=== PATIENT | female | born 1990 | race Two or more races ===

== ENCOUNTER 2020-10-26 08:52 | Emergency (ER) | payer MEDICAID ==
[~2020-10-26] VITALS: Ht 165.1 cm; Wt 68.2 kg
[2020-10-26 09:46] LABS: BASOPHILS % (AUTO) 0.2 % (0-1); EOSINOPHILS % (AUTO) 0 % (0-6); HEMATOCRIT 43.2 % (35.0-45.0); HEMOGLOBIN 14.5 g/dl (12.0-16.0); LYMPHOCYTES # (AUTO) 2.1 X10'3 (1.1-4.8); LYMPHOCYTES % (AUTO) 38.2 % (21-51); MEAN CORPUSCULAR HEMOGLOBIN 30.4 PG (27.0-31.0); MEAN CORPUSCULAR HGB CONC 33.6 g/dL (33.0-36.5); MEAN CORPUSCULAR VOLUME 90.6 FL (78-98); MEAN PLATELET VOLUME 7.7 FL (7.4-10.4); MONOCYTES # (AUTO) 0.5 X10'3 (0-0.9); MONOCYTES % (AUTO) 8.3 % (2-12); NEUTROPHILS % (AUTO) 53.3 % (42-75); PLATELET COUNT 227 X10'3 (140-440); RED BLOOD COUNT 4.77 X10'6 (4.20-5.60); RED CELL DISTRIBUTION WIDTH 12.6 % (11.5-14.5); WHITE BLOOD COUNT 5.6 X10'3 (4.5-11.0)
[2020-10-26] MEDS ORDERED: DEXA4TAB67 PO (10:21)
[2020-10-26] MEDS ORDERED: dexamethasone 4mg tablet PO ONE (10:25)
[2020-10-26 10:27] LABS: ALANINE AMINOTRANSFERASE 22 U/L (12-78); ALBUMIN 3.6 G/DL (3.4-5.0); ALBUMIN/GLOBULIN RATIO 0.7 (1.1-1.5); ALKALINE PHOSPHATASE 92 IU/L (46-116); ANION GAP 12 (8-16); ASPARTATE AMINO TRANSFERASE 22 U/L (10-37); BILIRUBIN,TOTAL 0.2 MG/DL (0.1-1.0); BLOOD UREA NITROGEN 17 MG/DL (7-18); BUN/CREATININE RATIO 16.3 (6.6-38.0); C-REACTIVE PROTEIN 5.71 MG/DL (0.0-0.5); CALCIUM 8.4 MG/DL (8.5-10.1); CHLORIDE 103 MMOL/L (99-107); CREATININE 1.04 MG/DL (0.40-0.90); FERRITIN 848 NG/ML (8-252); GLUCOSE 93 MG/DL (70-104); LACTATE DEHYDROGENASE 240 U/L (81-234); SODIUM 141 MMOL/L (135-145); TOTAL CARBON DIOXIDE 25.7 MMOL/L (24-32); TOTAL PROTEIN 8.5 G/DL (6.4-8.2); eGFR 63 ML/MIN
[2020-10-26 10:34] LABS: POTASSIUM 2.9 MMOL/L (3.5-5.1)
[2020-10-26] MEDS ORDERED: potassium Cl 20 mEq SR tablet PO STA ×2 (10:39→12:48)
[2020-10-26] MEDS ORDERED: magnesium oxide 400mg tablet PO ONE (10:40)
[2020-10-26 10:48] LABS: D-DIMER 1.19 MG/L FEU (0-0.50); PARTIAL THROMBOPLASTIN TIME 31 SECONDS (22-32)
[2020-10-26] MEDS ORDERED: iohexol 350MG/ML 100ml bottle IV ONE (12:00)
[2020-10-26 13:20] VITALS: BP 136/85
[2020-10-26] MEDS ORDERED: POTA20TA19 PO (13:29)
--- NOTE | 2020-10-27 10:20 | NUR ---
PT'S MOTHER CALLED REGARDING YESTERDAYS VISIT. PT HAS MISPLACED HER DC PAPERS TO INCLUDE HER PERSCRIPTION. DR STRONG APPROVED RX BE CALLED INTO PT'S PHARMACH[facility] [place]: *DEXAMETHASONE 4MG TAB, 1 TAB PO Q12H FOR 5 DAYS #10 *POTASSIUM CLORIDE (K-DUR) 20MCG TAB, 1 TAB PO BID FOR 5 DAYS #10.
== END 2020-10-26 13:50 | disposition home or self-care (01) ==
LOC: ER 08:53
DX: U07.1 COVID-19 (principal); J12.82 Pneumonia due to coronavirus disease 2019; R05 Cough; R11.0 Nausea; J02.9 Acute pharyngitis, unspecified; E87.6 Hypokalemia; Z90.710 Acquired absence of both cervix and uterus; Z88.0 Allergy status to penicillin; Z88.8 Allergy status to other drugs, medicaments and biological substances; Z79.899 Other long term (current) drug therapy
CPT/HCPCS: 36415; 71045; 71275; 80053; 82728; 83605; 83615; 83880; 84145; 84484; 85025; 85379; 85384; 85610; 85730; 86140; 87040; 87077; 87186; 87502; 87503; 93005; 99285; Q9967